=== PATIENT | male | born 1940 | race Hispanic/Latino ===

== ENCOUNTER 2018-07-08 18:52 | Emergency (ER) | payer MEDICARE, BC ==
[2018-07-08 18:59] VITALS: BP 136/76; PULSE 74; RESP 18; TEMP 97.9; O2SAT 99
[2018-07-08] MEDS ORDERED: Tdap Vaccine 0.5 ml Vial (10-64 yrs) IM ONE ×2 (19:13→19:59)
--- NOTE | 2018-07-08 19:38 | ED PDOC ---
Upper Extremity Pain/Injury Time Seen by Provider: 07/08/18 19:04 Chief Complaint (Nursing): Abnormal Skin Integrity Chief Complaint (Provider): Finger Laceration History Per: Patient History/Exam Limitations: no limitations Onset/Duration Of Symptoms: Mins (just prior to arrival) Current Symptoms Are (Timing): Still Present Additional Complaint(s): 78 year old male with a past medical history of atrial fibrillation presents to the ED for evaluation of a laceration to the left 3rd digit. Patient reports that just prior to arrival, he was washing a wine glass, when it cracked in his hand, sustaining the cut. Patient states that he takes Eliquis daily for atrial fibrillation, and persistent bleeding prompted concern for ED visit. Patient denies taking pain medications prior to arrival. Patient cannot recall last tetanus vaccination. Otherwise: (-) recent fevers, (-) loss of sensation, (-) limitation of motion. Patient is right hand dominant. PMD: Thony VALLE ([facility]) Past Medical History Reviewed: Historical Data, Nursing Documentation, Vital Signs Vital Signs: Last Vital Signs Temp 97.9 F 07/08/18 18:57 Pulse 74 07/08/18 18:57 Resp 18 07/08/18 18:57 BP 136/76 07/08/18 18:57 Pulse Ox 99 07/08/18 18:57 - Medical History PMH: Atrial Fibrillation, TIA - Surgical History Other surgeries: ganglion cyst removed from right wrist - Family History Family History: States: No Known Family Hx - Social History Current smoker - smoking cessation education provided: No Alcohol: Social Drugs: Denies - Immunization History Hx Tetanus Toxoid Vaccination: No (unknown last tetanus) - Home Medications Home Medications: Ambulatory Orders Medication Instructions Recorded RX: Bacitracin Ointment 1 applic TOP BID #1 tube 07/08/18 [Bacitracin] - Allergies Allergies/Adverse Reactions: Allergies Allergy/AdvReac Type Severity Reaction Status Date / Time No Known Allergies Allergy Verified 07/08/18 18:57 Review of Systems ROS Statement: Except As Marked, All Systems Reviewed And Found Negative Constitutional: Negative for: Fever Skin: Positive for: Other (laceration to left 3rd digit) Neurological: Negative for: Other (loss of sensation, limitation of motion.) Physical Exam - Reviewed Nursing Documentation Reviewed: Yes Vital Signs Reviewed: Yes - Physical Exam Comments: GENERAL APPEARANCE: Patient is awake, alert, oriented x 3, resting comfortably; in no acute distress. SKIN: Warm, dry; (-) cyanosis. NECK: Supple CHEST AND RESPIRATORY:(-) rales, (-) rhonchi, (-) wheezes; breath sounds equal bilaterally. Respirations even and nonlabored. HEART AND CARDIOVASCULAR: (-) irregularity LEFT UPPER EXTREMITY: To dorsum of proximal left 3rd digit: 0.75 cm horizontal, superficial laceration, (-) foreign body, (-) deep structure involvement, full ROM of 3rd digit and other digits of left hand, (-) tenderness, (-) active bleeding, (-) edema, (-) ecchymosis. Sensation and capillary refill intact. Remainder of hand and wrist: nontender, full ROM.(-) distal neurovascular deficit. NEURO AND PSYCH: Mental status as above. Gait: steady. Speech: clear. (-) facial asymmetry (-) aphasia - ECG O2 Sat by Pulse Oximetry: 99 (RA) Pulse Ox Interpretation: Normal Medical Decision Making Medical Decision Makin:05 Clinical impression: 78 year old male with a finger laceration. Initial plan: - Wound repair - Tetanus IM - Re-evaluation 1939 Wound irrigated with saline and betadine solution. Wound repair performed with dermabond by Colt PETERSON. Patient tolerated procedure well. Patient educated on adhesive wound care. Neurovascularly intact after procedure. 1999 On re-evaluation, patient reports improvement of symptoms. On exam, patient remains AAOx3, in no acute distress. Lungs clear to auscultation, cardiac RRR, repeat neuro exam shows no focal findings. Vitals stable. Lab/Diagnostic results d/w the patient in great detail. Diagnosis of finger laceration d/w the patient. Based on history, exam and diagnostic results, plan will be for outpatient foll ow up. Patient instructed to follow-up with pmd / referral provided / the clinic in 1- 2 days without fail. Advised to take medication as prescribed. Return to the emergency room at any time for any new or worsening symptoms. Patient states he fully agrees with and understands discharge instructions. States that he agrees with the plan and disposition. Verbalized and repeated discharge instructions and plan. I have given the patient opportunity to ask any additional questions. Scribe Attestation: Documented by Nadeen Hall, acting as a scribe for Nadeen Simeon Provider Scribe Attestation: All medical record entries made by the Scribe were at my direction and personally dictated by me. I have reviewed the chart and agree that the record accurately reflects my personal performance of the history, physical exam, medical decision making, and the department course for this patient. I have also personally directed, reviewed, and agree with the discharge instructions and disposition. Disposition - Clinical Impression Clinical Impression: Laceration of finger - Patient ED Disposition Is Patient to be Admitted: No Counseled Patient/Family Regarding: Studies Performed, Diagnosis, Need For Followup, Rx Given - Disposition Referrals: primary, doctor [Other] Disposition: Routine/Home Disposition Time: 20:05 Condition: STABLE Additional Instructions: KEEP WOUND CLEAN AND DRY. ONCE ADHESIVE FALLS OFF, APPLY PRESCRIBED OINTMENT TWICE DAILY UNTIL HEALED. The emergency medical care you received today was directed at your acute symptoms. If you were prescribed any medication, please fill it and take as directed. It may take several days for your symptoms to resolve. Return to the Emergency Department if your symptoms worsen, do not improve, or if you have any other problems. Please contact your doctor in 2 days for re-evaluation and follow up / or call one of the physicians/clinics you have been referred to that are listed on the Patient Visit Information form that is included in your discharge packet. Bring any paperwork you were given at discharge with you along with any medications you are taking to your follow up visit. Our treatment cannot replace ongoing medical care by a primary care provider (PCP) outside of the emergency department. Prescriptions: RX: Bacitracin Ointment [Bacitracin] 1 applic TOP BID #1 tube Instructions: Laceration Repair With Glue (DC), Wound Care, Common Finger Injuries Forms: [employer] (Serbian) Print Language: YAKUT - POA Present On Arrival: None
== END 2018-07-08 20:36 | disposition home or self-care (01) ==
LOC: H.ER 18:52
DX: S61.213A Laceration without foreign body of left middle finger without damage to nail, initial encounter (principal); W25.XXXA Contact with sharp glass, initial encounter; Y93.G1 Activity, food preparation and clean up; Z23 Encounter for immunization; Z86.73 Personal history of transient ischemic attack (TIA), and cerebral infarction without residual deficits